=== PATIENT | male | born 1960 | race Two or more races ===

== ENCOUNTER 2024-06-06 19:56 | Inpatient (IN) | payer BC, OTHER, MEDICARE ==
[~2024-06-06] VITALS: Ht 167.6 cm; Wt 92.1 kg
[2024-06-06] MEDS: SODIUM CHLORIDE 0.9% 1,000 ML IV ONE (20:04)
[2024-06-06] MEDS: MORPHINE SULFATE 4 MG/ML INJ (FOR IV/IM USE) IV ONE (20:56)
[2024-06-06 21:15] LABS: BASOPHILS % 0.3 % (0.0-2.0); EOSINOPHILS % 1.1 % (0.0-5.0); HEMATOCRIT. 35.2 % (42.0-52.0); HEMOGLOBIN. 11.6 g/dL (14.0-18.0); MEAN CORPUSCULAR HEMOGLOBIN 30.8 pg (28.0-32.0); MEAN CORPUSCULAR VOLUME 93.3 fL (80.0-94.0); MEAN PLATELET VOLUME 7.4 fl (7.4-10.4); MONOCYTES % 7.9 % (2.0-8.0); NEUTROPHILS % 63.7 % (40.0-76.0); PLATELET 255 x1000/uL (130-400); RED BLOOD CELL COUNT 3.77 mill/uL (4.7-6.1); WHITE BLOOD COUNT 8.8 x1000/uL (4.5-11.0)
[2024-06-06 21:23] LABS: CHLORIDE 108 mEq/L (98-107); POTASSIUM 4.3 mEq/L (3.5-5.1); SODIUM 138 mEq/L (136-145)
[2024-06-06 21:24] LABS: CARBON DIOXIDE 24 mEq/L (21-32)
[2024-06-06 21:25] LABS: CALCIUM 8.4 mg/dL (8.7-10.4)
[2024-06-06 21:28] LABS: INR 1.2; PROTHROMBIN TIME 12.8 sec (9.6-11.0)
[2024-06-06 21:29] LABS: CREATININE 2.1 mg/dL (0.6-1.3); GLUCOSE 124 mg/dL (70-105)
[2024-06-06 21:30] LABS: TROPONIN I HIGH SENSITIVITY 14 ng/L (3.0-53); UREA NITROGEN BLOOD 25 mg/dL (9-23)
[2024-06-06 21:31] LABS: LACTIC ACID 2.2 mmol/L (0.4-2.0)
[2024-06-06 22:30] VITALS: BP 103/64; PULSE 80; RESP 17; TEMP 36.61404; O2SAT 99
[2024-06-06] MEDS: PIPERACILLIN/TAZO 3.375G/50ML 50 ML IV STA (22:30)
[2024-06-06] MEDS ORDERED: IOHEXOL-350 100 ML BOTTLE ONE (23:36)
[2024-06-07] MEDS ORDERED: ONDANSETRON HCL 4MG/2ML INJ IV PRN (00:45)
[2024-06-07] MEDS: PANTOPRAZOLE SODIUM 40 MG/VIAL IV SCH (01:26)
[2024-06-07] MEDS ORDERED: NALOXONE HCL 0.4MG/ML VIAL IV PRN (01:30)
[2024-06-07] MEDS: MORPHINE SULFATE 2 MG/ML INJ (NOT FOR IM USE) IV PRN (01:33)
[2024-06-07] MEDS: DEXT 5%/0.45% NACL 1000ML 1,000 ML IV SCH (01:40)
[2024-06-07 04:00] VITALS: BP_SYST 104; BP_SYST 126; BP_DIAS 67; BP_DIAS 81; PULSE 68; RESP 17; TEMP 36.28068; O2SAT 100
[2024-06-07] MEDS: PIPERACILLIN/TAZO 3.375G/50ML 50 ML IV SCH (05:57)
[2024-06-07 06:42] LABS: TROPONIN I HIGH SENSITIVITY 7 ng/L (3.0-53)
[2024-06-07] MEDS: MORPHINE SULFATE 4 MG/ML INJ (FOR IV/IM USE) IV ONE (07:52)
[2024-06-07 08:00] VITALS: BP 94/60; PULSE 63; RESP 17; TEMP 36.6696; O2SAT 99
[2024-06-07] MEDS: ENOXAPARIN 30MG/0.3ML SYR SUBCUT SCH (08:46)
[2024-06-07 12:00] VITALS: BP 112/56; PULSE 68; RESP 17; TEMP 36.114; O2SAT 98
[2024-06-07] MEDS ORDERED: OMEP20CA14 PO (12:19)
[2024-06-07] MEDS ORDERED: TAMS-11 (12:19)
[2024-06-07] MEDS ORDERED: SERT-422 PO (12:19)
[2024-06-07] MEDS ORDERED: AMLO5TAB88 PO (12:19)
[2024-06-07] MEDS ORDERED: TRAZ-252 PO (12:19)
[2024-06-07] MEDS ORDERED: FINA5TAB11 PO (12:19)
[2024-06-07] MEDS ORDERED: LOSA50TA41 PO (12:19)
[2024-06-07] MEDS ORDERED: METO-411 PO (12:19)
[2024-06-07 16:27] VITALS: BP 119/59; PULSE 78; RESP 16; TEMP 37.16964; O2SAT 99
[2024-06-07 20:03] VITALS: BP 135/56; PULSE 69; RESP 22; TEMP 37.39188; O2SAT 99
[2024-06-07] MEDS: TRAZODONE HCL 50MG TABLET PO SCH (20:53)
[2024-06-07 21:40] VITALS: BP 153/68; PULSE 65; RESP 18; TEMP 36.5292
[2024-06-08] VITALS: BP 140/72; PULSE 79; RESP 18; TEMP 36.22512; O2SAT 100
[2024-06-08 04:00] VITALS: BP 138/62; PULSE 72; RESP 18; TEMP 36.78072; O2SAT 98
[2024-06-08 06:32] LABS: BASOPHILS % 0.4 % (0.0-2.0); EOSINOPHILS % 5.6 % (0.0-5.0); HEMATOCRIT. 39.5 % (42.0-52.0); HEMOGLOBIN. 13.1 g/dL (14.0-18.0); LYMPHOCYTES % 42.4 % (20.0-50.0); MEAN CORPUSCULAR HGB CONC 33.3 g/dL (31.0-37.0); MEAN CORPUSCULAR VOLUME 96.2 fL (80.0-94.0); MEAN PLATELET VOLUME 7.8 fl (7.4-10.4); NEUTROPHILS % 41.6 % (40.0-76.0); PLATELET 224 x1000/uL (130-400); RED CELL DISTRIBUTION WIDTH 15.4 % (11.6-14.6); WHITE BLOOD COUNT 8.6 x1000/uL (4.5-11.0)
[2024-06-08 06:35] LABS: CARBON DIOXIDE 25 mEq/L (21-32); CHLORIDE 108 mEq/L (98-107); POTASSIUM 4.1 mEq/L (3.5-5.1); SODIUM 140 mEq/L (136-145)
[2024-06-08 06:41] LABS: CREATININE 1.2 mg/dL (0.6-1.3); GLUCOSE 84 mg/dL (70-105); TRIGLYCERIDE 151 mg/dL (0-150); UREA NITROGEN BLOOD 13 mg/dL (9-23)
[2024-06-08 06:42] LABS: ALANINE AMINOTRANSFERASE 20 IU/L (10-49); ASPARTATE AMINOTRANSFERASE 24 IU/L (<34); LDL CHOLESTEROL 52 mg/dL (5-100)
[2024-06-08 06:43] LABS: BILIRUBIN DIRECT 0.2 mg/dL (<=3.0); BILIRUBIN TOTAL 0.6 mg/dL (0.1-1.0); CHOLESTEROL 105 mg/dL (<200); HDL CHOLESTEROL 34 mg/dL (>55); PROTEIN TOTAL 6.5 g/dL (6.0-8.3)
[2024-06-08 07:04] LABS: HEPATITIS B SURFACE ANTIGEN NEGATIVE (Negative)
[2024-06-08 07:26] LABS: HEPATITIS C AB NON REACTIVE (Neg) (Negative)
[2024-06-08 08:00] VITALS: BP 138/77; PULSE 79; RESP 18; TEMP 36.28068; O2SAT 96
[2024-06-08] MEDS: FINASTERIDE 5MG TABLET PO SCH (08:43)
[2024-06-08] MEDS: METOPROLOL SUCCINATE 50MG ER TABLET PO SCH (08:43)
[2024-06-08] MEDS: LOSARTAN 50 MG TABLET PO SCH (08:43)
[2024-06-08] MEDS: AMLODIPINE 5MG TABLET PO SCH (08:43)
[2024-06-08 12:00] VITALS: BP 148/72; PULSE 70; RESP 18; TEMP 36.6696; TEMP 36.66960; O2SAT 96
[2024-06-08] MEDS: INFLUENZA VACCINE 05/PF 0.5 ML SYRINGE IM ONE (15:00)
[2024-06-08] MEDS: PNEUMOCOCCAL 20-VAL CONJ-DIP CRM 0.5ML IM ONE (15:00)
[2024-06-08] MEDS ORDERED: LEVO750T68 MT (16:46)
[2024-06-08 16:58] VITALS: BP 148/72; PULSE 68; TEMP 98; O2SAT 96
[2024-06-09] MEDS ORDERED: FAMOTIDINE 20MG/2ML VIAL IV SCH (09:00)
== END 2024-06-08 17:40 | disposition home or self-care (01) | DRG 871 ==
LOC: ER 19:56 → 5WST 22:41 → 7EST 06-07 21:24
PROVIDERS: ADMIT Internal Medicine; ATTEND Internal Medicine
DX: A41.9 Sepsis, unspecified organism (principal); N17.0 Acute kidney failure with tubular necrosis; K57.32 Diverticulitis of large intestine without perforation or abscess without bleeding; E78.5 Hyperlipidemia, unspecified; J43.9 Emphysema, unspecified; I73.9 Peripheral vascular disease, unspecified; I95.89 Other hypotension; N40.0 Benign prostatic hyperplasia without lower urinary tract symptoms; I95.1 Orthostatic hypotension; I25.10 Atherosclerotic heart disease of native coronary artery without angina pectoris; I25.2 Old myocardial infarction; Z91.148 Patient's other noncompliance with medication regimen for other reason
CPT/HCPCS: 36415; 71275; 74174; 80048; 80061; 80076; 83605; 83880; 84484; 85025; 86705; 86850; 86900; 87340; 93005; 99291; J1650; J2270; J2470; J2543; J7030; Q9967